=== PATIENT | female | born 1995 | race Caucasian/White ===

== ENCOUNTER 2024-01-05 19:37 | Emergency (ER) | payer BC ==
--- NOTE | 2024-01-05 22:23 | ED Physician Documentation ---
PD HPI CHEST PAIN - Stated complaint Stated Complaint: CHEST/BACK PX - Chief complaint Chief Complaint: Back Pain - History obtained from History obtained from: Patient - Additional information Additional information: 28-year-old female presents for evaluation of lumbar back pain, chest pain, shortness of breath prior to arrival. Patient [place] felt pain in her lower thoracic/upper lumbar region. Pain persisted and she subsequently developed chest tightness and shortness of breath. She tried to lay down however this did not improve her symptoms. She vomited once on arrival to the emergency department. Patient states that since she has gotten to the emergency department her symptoms have resolved and she feels much better. Denies medical history, does not take any medications regularly. Review of Systems Constitutional: denies: Fever, Chills Cardiac: reports: Chest pain / pressure. denies: Palpitations, Calf pain Respiratory: reports: Dyspnea. denies: Cough, Wheezing GI: reports: Vomiting. denies: Abdominal Pain, Nausea : denies: Dysuria, Frequency, Hesitancy Skin: denies: Rash, Lesions, Abrasion (s), Laceration (s) Neurologic: denies: Generalized weakness, Focal weakness, Numbness PD PAST MEDICAL HISTORY - Past Medical History Past Medical History: No - Past Surgical History Past Surgical History: Yes Ortho: ACL reconstruction - Social History Does the pt smoke?: No Smoking Status: Never smoker Does the pt drink ETOH?: Yes Does the pt have substance abuse?: No - Immunizations Immunizations are current?: Yes - POLST Patient has POLST: No PD ED PE NORMAL - Vitals Vital signs reviewed: Yes - General General: Alert and oriented X 3, No acute distress, Well developed/nourished - Neck Neck: Supple, no meningeal sign - Cardiac Cardiac: RRR, Strong equal pulses - Respiratory Respiratory: No respiratory distress, Clear bilaterally - Abdomen Abdomen: Soft, Non tender, Non distended - Back Back: No CVA TTP, No spinal TTP - Derm Derm: Normal color, Warm and dry, No rash - Neuro Neuro: Alert and oriented X 3, 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 Relevant findings are: Rate: Rate (enter#) (72) Rhythm: NSR [place]: Normal Intervals: Normal AR QRS: Normal Ischemia: Normal ST segments PD Medical Decision Making - ED course Complexity details: reviewed results, re-evaluated patient, considered differential, d/w patient ED course: Well-appearing patient with lumbar pain followed by chest tightness and shortness of breath. Currently pain-free and states she has been asymptomatic since arrival to the emergency department. Physical exam is unremarkable, no reproducible pain, lungs are clear to auscultation bilaterally, EKG is normal sinus rhythm without concerning findings. Chest x-ray negative for acute abnormalities. Possible that back pain caused development of chest pain and dyspnea. Patient has remained asymptomatic since arrival to the emergency department. Resting comfortably in bed, reading a book in no acute distress. Patient counseled on EKG and imaging findings, recommended Tylenol and ibuprofen if pain recurs, recommended returning to the emergency department if she had recurrence of chest pain or shortness of breath for additional evaluation. Departure - Departure Disposition: 01 Home, Self Care Clinical Impression: Back pain Condition: Stable Instructions: Lumbar Pain Causes Comments: Your EKG and chest x-ray were reassuring. I do not know the cause of your symptoms but everything here appears normal. At home you can take Tylenol and ibuprofen as needed for symptoms. I also recommend gentle stretching exercises for back pain. Discharge Date/Time: 01/05/24 23:06
--- NOTE | 2024-01-05 22:40 | XRAY Report ---
PROCEDURE: Chest 1V INDICATIONS: chest pain, dyspnea TECHNIQUE: One view of the chest was acquired. COMPARISON: None. FINDINGS: Surgical changes and devices: None. Lungs and pleura: No pleural effusions or pneumothorax. Lungs are clear. Mediastinum: Mediastinal contours appear normal. Heart size is normal. Bones and chest wall: No suspicious bony lesions. Overlying soft tissues appear unremarkable. IMPRESSION: No acute cardiopulmonary process. Reviewed by: Tyshawn Dillard MD on 01/05/2024 9:38 PM [facility] Approved by: Tyshawn Dillard MD on 01/05/2024 9:38 PM [facility] Station ID: [id number]
[2024-01-05 23:15] VITALS: BP 131/75; O2SAT 98
== END 2024-01-05 23:06 | disposition home or self-care (01) ==
LOC: ED 19:37
DX: M54.50 Low back pain, unspecified (principal); R07.9 Chest pain, unspecified; R06.00 Dyspnea, unspecified
CPT/HCPCS: 93005; 99283